=== PATIENT | male | born 1945 | race Caucasian/White ===

== ENCOUNTER 2023-09-11 08:49 | Outpatient (CLI) | payer MEDICARE ==
[2023-09-11 13:58] LABS: INR-International Normal Ratio 1.2; Prothrombin Time 15.7 sec (12.0-14.7)
[2023-09-11 13:59] LABS: PTT 38.2 sec (22.9-36.1)
[2023-09-11 14:23] LABS: DRVVT Confirm 47.3
[2023-09-11 20:25] LABS: INR-International Normal Ratio 1.2; Prothrombin Time 15.4 sec (12.0-14.7)
[2023-09-11 20:28] LABS: D-Dimer Test Less than 0.27 *mcg/mL (0.27-0.43)
[2023-09-12 12:11] LABS: Cardiolipin IgA Ab 2.8 APL-U/mL (<14 Negative); Cardiolipin IgG Ab 1.7 GPL-U/mL (<10 Negative); EliA APS New Method **** NEW METHOD ****; beta-2-Glycoprotein I IgA Ab 2.9 U/mL (<7 Negative); beta-2-Glycoprotein I IgG Ab 1.3 U/mL (<7 Negative)
[2023-09-12 12:21] LABS: Cardiolipin IgA Ab 2.6 APL-U/mL (<14 Negative); Cardiolipin IgG Ab 1.7 GPL-U/mL (<10 Negative); EliA APS New Method **** NEW METHOD ****
[2023-09-12 13:21] LABS: DRVVT Confirm 47.3
[2023-09-16 15:15] LABS: Cytoplasmic (C-ANCA) <1:20 titer (Neg:<1:20); Myeloperoxidase AutoAbs <0.2 units (0.0-0.9); Perinuclear (P-ANCA) <1:20 titer (Neg:<1:20); Proteinase-3 AutoAbs Less than 0.2 units (0.0-0.9)
[2023-09-18 14:16] LABS: Protein C Activity 56 % (78-152)
[2023-09-19 15:17] LABS: HEX PHOS LA Tube 1 46.9 SEC; HEX PHOS LA Tube 2 45.3 SEC; Hexagonal Phospholipid Neut 1.6 SEC (0-8.0)
== END 2023-09-11 08:50 | disposition home or self-care (01) ==
LOC: CSHWCC 08:49
PROVIDERS: ATTEND Physician Assistant
DX: L98.492 Non-pressure chronic ulcer of skin of other sites with fat layer exposed (principal)
CPT/HCPCS: 82595; 83090; 83516; 85300; 85303; 85305; 85307; 85379; 85390; 85598; 85610; 85613; 85730; 86037; 86140; 86147; G0463; 86146; 99214

== ENCOUNTER 2024-07-02 12:37 | Outpatient (CLI) | payer MEDICARE | END 2024-07-02 12:38 | disposition home or self-care (01) | LOC: CSHMRI 12:37 | PROVIDERS: ATTEND Orthopaedic Surgery Hand Surgery | DX: M48.02 Spinal stenosis, cervical region (principal); M47.22 Other spondylosis with radiculopathy, cervical region; M47.12 Other spondylosis with myelopathy, cervical region; G56.02 Carpal tunnel syndrome, left upper limb; Z98.890 Other specified postprocedural states | CPT/HCPCS: 72141; 76881 ==